=== PATIENT | male | born 1985 | race Caucasian/White ===

== ENCOUNTER 2021-09-20 13:37 | Emergency (ER) | payer MEDICAID ==
[~2021-09-20] VITALS: Ht 177.8 cm; Wt 72.6 kg
[2021-09-20 13:56] VITALS: BP 137/89
== END 2021-09-20 15:18 | disposition home or self-care (01) ==
LOC: EDUNIT# 13:37 → EDBD 13:37 → ER 13:37
DX: E86.0 Dehydration (principal); F19.10 Other psychoactive substance abuse, uncomplicated; R41.82 Altered mental status, unspecified; F17.210 Nicotine dependence, cigarettes, uncomplicated
CPT/HCPCS: 71045; 93005

== ENCOUNTER 2021-09-20 16:52 | Emergency (ER) | payer MEDICAID ==
[~2021-09-20] VITALS: Ht 170.2 cm; Wt 68.0 kg
[2021-09-20 17:12] VITALS: BP 102/45
[2021-09-20] MEDS ORDERED: SODIUM CHLORIDE 0.9% 1,000 ML IV ONE ×2 (17:15→18:00)
[2021-09-20 17:33] LABS: Basophils # (auto) 0.1 10 ^3/uL (0-0.2); Basophils % (auto) 0.8 % (0.0-2.0); Eosinophils # (auto) 0.1 10 ^3/uL (0-0.8); Eosinophils % (auto) 1.5 % (0.0-7.0); Hematocrit 44.4 % (41.0-53.0); Hemoglobin 15.4 g/dL (13.5-17.5); Lymphocytes # (auto) 1.4 10 ^3/uL (0.4-5.4); Lymphocytes % (auto) 16.3 % (10.0-50.0); Mean Corpuscular Hemoglobin 28.6 pg (28.0-32.0); Mean Corpuscular Hgb Conc. 34.8 g/dL (32.0-36.0); Mean Corpuscular Volume 82.2 fL (80.0-100.0); Monocytes # (auto) 0.4 10 ^3/uL (0-1.3); Monocytes % (auto) 4.8 % (0.0-12.0); Neutrophils # (auto) 6.8 10 ^3/uL (1.6-8.6); Neutrophils % (auto) 76.6 % (37.0-80.0); Nucleated Red Blood Cells % 0.5 %; Red Cell Distribution Width 13.1 % (11.8-14.3); White Blood Cell 8.8 10^3/uL (4.4-10.8)
[2021-09-20 17:50] LABS: Albumin 4.6 g/dL (3.4-5.0); BUN/Creatinine Ratio 10.8; Calcium 9.3 mg/dL (8.5-10.1); Potassium 3.9 mmol/L (3.5-5.1)
[2021-09-20 17:53] LABS: Bilirubin, Total 0.8 mg/dL (0.2-1.0); Total Protein 8.2 g/dL (6.4-8.2)
== END 2021-09-20 18:07 | disposition left against medical advice (07) ==
LOC: ER 16:52
DX: E86.0 Dehydration (principal); F19.10 Other psychoactive substance abuse, uncomplicated
CPT/HCPCS: 36415; 80053; 82550; 84484; 85025; 96360; 99283; J7030